=== PATIENT | female | born 1970 | race Caucasian/White ===

== ENCOUNTER 2022-03-30 13:04 | Outpatient (CLI) | payer OTHER, SELFPAY ==
--- NOTE | 2022-03-30 13:00 | CRLHL7_ITS ---
For Patients: As a result of the Century Cures Act, medical imaging exams and procedure reports are released immediately into your electronic medical record. You may view this report before your referring provider. If you have questions, please contact your health care provider. BILATERAL MAMMOGRAM WITH COMPUTER-AIDED DETECTION AND TOMOSYNTHESIS TECHNIQUE: CC and MLO views were obtained. These mammographic images have been obtained using full-field digital technique. These mammographic images were interpreted with the benefit of computer-aided detection. Breast Tomosynthesis was used in this interpretation. COMPARISON FILM: 02/27/2021, 10/04/2019, 04/12/2016. FINDINGS: The breasts are almost entirely fatty IMPRESSION: There is no radiographic evidence for malignancy. ASSESSMENT: BI-RADS Category 1: Negative RECOMMENDATION: Routine screening mammogram in 1 year. A lay language report of this examination will be provided to the patient. Td Rodriguez M.D. Diagnostic Radiologist [email or web address] TANIKA/Dictated by: Td Rodriguez MD @ 03/31/2022 12:55:00 PM (Electronically Signed)
== END 2022-03-30 13:05 | disposition home or self-care (01) ==
LOC: MAMMO 13:07
PROVIDERS: PCP Physician Assistant Medical; Visit Provider Obstetrics & Gynecology
DX: Z12.31 Encounter for screening mammogram for malignant neoplasm of breast (principal)
CPT/HCPCS: 77063; 77067

== ENCOUNTER 2022-05-05 10:20 | Outpatient (CLI) | payer OTHER, SELFPAY ==
[2022-05-05 12:18] LABS: Cholesterol* 216 mg/dL (90-199)
[2022-05-05 12:19] LABS: Glucose* 103 mg/dL (60-115); HDL Cholesterol* 60 mg/dL (>=50); LDL Cholesterol Calculated 134 mg/dL (<100); Triglycerides* 109 mg/dL (40-149)
== END 2022-05-05 10:21 | disposition home or self-care (01) ==
LOC: NFLDREF 10:23
PROVIDERS: PCP Physician Assistant Medical; Visit Provider Obstetrics & Gynecology
DX: Z13.1 Encounter for screening for diabetes mellitus (principal); Z13.6 Encounter for screening for cardiovascular disorders
CPT/HCPCS: 80061; 82947

== ENCOUNTER 2022-08-02 06:46 | Outpatient (CLI) | payer OTHER, SELFPAY | END 2022-08-02 06:47 | disposition home or self-care (01) | LOC: OP CLINIC 06:46 | PROVIDERS: PCP Physician Assistant Medical; Visit Provider Surgery | DX: Z12.11 Encounter for screening for malignant neoplasm of colon (principal) | CPT/HCPCS: 45378; 99153; J2250; J3010 ==

== ENCOUNTER 2022-12-08 07:22 | Outpatient (CLI) | payer OTHER, SELFPAY | END 2022-12-08 07:23 | disposition home or self-care (01) | LOC: NFLDREF 12-10 01:40 | PROVIDERS: PCP Physician Assistant Medical; Referring Provider Physician Assistant Medical; Visit Provider Physician Assistant Medical | DX: I10 Essential (primary) hypertension (principal); R53.83 Other fatigue; E78.5 Hyperlipidemia, unspecified; F41.1 Generalized anxiety disorder; E66.01 Morbid (severe) obesity due to excess calories | CPT/HCPCS: 80053; 82306; 82607; 82728; 84443 ==

== ENCOUNTER 2022-12-27 19:30 | Outpatient (CLI) | payer OTHER, SELFPAY ==
--- NOTE | 2023-01-11 08:06 | W.PM.SLEEP ---
Sleep Study Details Details Interpreting Provider: Calin Date of Sleep Study: 12/27/22 Sleep Study Details: STUDY TYPE:? Home ? BMI:? 43.2 ORDERING PROVIDER:? Calin INDICATION:? Concerns about sleep apnea ? SLEEP SUMMARY:? 420.5 minutes monitored RESPIRATORY SUMMARY:? AHI 105.6 with minimal positional variation Central index 3.9 Low oxygen 64 55% of study oxygen less than 90% Snoring 8.5% PERIODIC LIMB MOVEMENTS OF SLEEP:? Not recorded CARDIAC:? Ranged 66-117, mean 84.8 IMPRESSION:? Severe obstructive sleep apnea with a mildly elevated central apnea index of 3.9 and significant hypo oxygenation. RECOMMENDATION: Recommendation would be for an in-lab titration study. If this is not covered by insurance or patient is unwilling would recommend an auto titrate setting of 4-18 with close follow-up. Once effective therapy is established overnight oximetry study should be performed.
== END 2022-12-27 19:31 | disposition home or self-care (01) ==
LOC: SLEEP 19:31
PROVIDERS: PCP Physician Assistant Medical; Visit Provider Otolaryngology
DX: G47.33 Obstructive sleep apnea (adult) (pediatric) (principal)
CPT/HCPCS: 95806

== ENCOUNTER 2023-03-21 12:54 | Outpatient (CLI) | payer OTHER, SELFPAY ==
--- NOTE | 2023-03-21 13:00 | CRLHL7_ITS ---
For Patients: As a result of the Century Cures Act, medical imaging exams and procedure reports are released immediately into your electronic medical record. You may view this report before your referring provider. If you have questions, please contact your health care provider. INDICATION: Sinusitis. Deviated septum. TECHNIQUE: Noncontrast CT images acquired through the paranasal sinuses. COMPARISON: None. FINDINGS: No air-fluid levels to suggest acute sinusitis. Minimal mucosal thickening in the maxillary sinuses. The ethmoid infundibula are widely patent. The frontal sinuses and frontal recesses are clear. Minimal ethmoid sinus mucosal thickening. The sphenoid sinuses and sphenoethmoidal recesses are clear. There is 6 mm rightward nasal septal deviation with 3 mm rightward directed septal spur contacting the right middle nasal turbinate. No nasal cavity masses. Trace left mastoid fluid. IMPRESSION: 1. Minimal paranasal sinus mucosal disease. No air-fluid levels to suggest acute sinusitis. 2. Rightward nasal septal deviation with rightward directed septal spur contacting the right middle nasal turbinate. Please note that all CT scans at this facility use dose modulation, iterative reconstruction, and/or weight-based dosing when appropriate to reduce radiation dose to as low as reasonably achievable. Dictated by Darrell Silveira MD @ 03/21/2023 1:41:24 PM (Electronically Signed)
== END 2023-03-21 12:55 | disposition home or self-care (01) ==
LOC: CT 12:54
PROVIDERS: PCP Physician Assistant Medical; Visit Provider Otolaryngology
DX: J32.9 Chronic sinusitis, unspecified (principal); J34.2 Deviated nasal septum
CPT/HCPCS: 70486

== ENCOUNTER 2023-08-29 14:46 | Outpatient (CLI) | payer OTHER, SELFPAY | END 2023-08-29 14:47 | disposition home or self-care (01) | LOC: RAD 14:47 | PROVIDERS: PCP Physician Assistant Medical; Visit Provider Internal Medicine | DX: I44.7 Left bundle-branch block, unspecified (principal); I51.7 Cardiomegaly | CPT/HCPCS: 93306 ==

== ENCOUNTER 2023-09-28 14:48 | Outpatient (CLI) | payer OTHER, SELFPAY ==
--- NOTE | 2023-09-28 15:00 | CRLHL7_ITS ---
For Patients: As a result of the Century Cures Act, medical imaging exams and procedure reports are released immediately into your electronic medical record. You may view this report before your referring provider. If you have questions, please contact your health care provider. BILATERAL SCREENING MAMMOGRAM WITH COMPUTER-AIDED DETECTION AND TOMOSYNTHESIS TECHNIQUE: CC and MLO views were obtained. These mammographic images have been obtained using full-field digital technique. These mammographic images were interpreted with the benefit of computer-aided detection. Breast Tomosynthesis was used in this interpretation. COMPARISON FILM: 03/30/22, 02/27/21, 10/04/19. FINDINGS: The breasts are almost entirely fatty IMPRESSION: There is no radiographic evidence for malignancy. ASSESSMENT: BI-RADS Category 1: Negative RECOMMENDATION: Routine screening mammogram in 1 year. A lay language report of this examination will be provided to the patient. Td Rodriguez M.D. Diagnostic Radiologist [email or web address] TANIKA/Dictated by: Td Rodriguez MD @ 09/29/2023 9:01:00 AM (Electronically Signed)
== END 2023-09-28 14:49 | disposition home or self-care (01) ==
LOC: MAMMO 14:50
PROVIDERS: PCP Physician Assistant Medical; Visit Provider Physician Assistant Medical
DX: Z12.31 Encounter for screening mammogram for malignant neoplasm of breast (principal)
CPT/HCPCS: 77063; 77067

== ENCOUNTER 2023-10-21 10:20 | Day surgery (SDC) | payer OTHER, SELFPAY ==
[2023-10-21] VITALS (12 sets, daily range): BP systolic 119–140; BP diastolic 65–93; PULSE 62–96; RESP 13–20; TEMP 36.2–36.9; O2SAT 95–100; BMI 45.5
--- OUTSIDE RECORDS SUMMARY | 2023-10-21 10:23 | XMS_ITS | Clinical Summary ---
Author Name Unknown Organization [facility] Address [place], [place] [address] Care Team Providers Care Geosciences Faculty Member Name Role Phone Gabby Washington PA-C Primary Care Provider [phone] Allergies No known active allergies Medications Medication Sig Dispensed Refills Start Date End Date Status TRIPHASIL (28) ORAL TAB as directed ? 0 09/26/1998 Active metoprolol succinate (TOPROL XL) 25 mg Sustained-Release tabletIndications:PVC (premature ventricular contraction) Take 1 Tablet (25 mg) by mouth once daily. 90 Tablet 3 08/11/2023 Active Encounters Date Type Department Care Team Description 08/30/2023 Telephone [facility] [address] [place] [address] [address] [place] [address] Wing Guerrier MD Results 08/29/2023 3:00 PM LENDING ADVISOR Orders Only [facility] [address] [place] [address] 2 scans: (2-Ord) ECHO TTE COMPLETE WO CONTRAST ([id number]) 08/29/2023 Travel 08/15/2023 Telephone [facility]a [facility] [place] [address] Wing Guerrier MD Results 08/11/2023 Telephone [facility] [place] [address] Wing Guerrier MD Results 08/09/2023 9:00 AM LENDING ADVISOR Ancillary Procedure [facility] [address] [place] [address] [place] [address] 08/09/2023 8:45 AM LENDING ADVISOR Orders Only [facility] [address] [place] [address] [place] [address] Lab 08/09/2023 Travel 07/22/2023 1:30 PM CDT Office Visit [facility] [address] [place] [address] Wing Guerrier MD 07/22/2023 Telephone [facility] [address] [place] [address] Gabby Washington PA-C Imaging (Echo // Referral) 07/22/2023 Telephone [facility] [address] [place] [address] [place] [address] Wing Guerrier MD Health Maintenance Update from Last 3 Months Social History Tobacco Use Types Packs/Day Years Used Date Smoking Tobacco: Never Assessed Social Connections Answer Date Recorded Frequency of Communication with Friends and Fami ly Not on file 07/22/2023 Sex and Gender Information Value Date Recorded Sex Assigned at Not on file Gender Identity Not on file Sexual Orientation Not on file Last Filed Vital Signs Vital Sign Reading Time Taken Comments Blood Pressure 102/60 11/18/1999 12:00 AM LENDING ADVISOR Pulse - - Temperature 36.4 ??C (97.5 ??F) 11/18/1999 12:[address] Respiratory Rate - - Oxygen Saturation - - Inhaled Oxygen Concentration - - Weight 124.7 kg (275 lb) 08/09/2023 9:00 AM LENDING ADVISOR Height 170.2 cm (5' 7) 08/09/2023 9:00 AM LENDING ADVISOR Body Mass Index 43.07 08/09/2023 9:00 AM LENDING ADVISOR Plan of Treatment Health Maintenance Due Date Last Done Comments Tdap 1981 Depression screening for age 12+ 1982 HIV for age 15-65 1985 Hepatitis C screening for age 18-79 02/14/1988 Tetanus booster 1990 Colonoscopy through age 75 2015 Lipids for age 45-75 2015 Mammogram for age 45-75 2015 Zoster (shingles) series for age 50+ (1 of 2) 02/14/2020 COVID-19 vaccine series (3 - 2022-24 season) 2023 04/01/2021, 03/09/2021 Influenza for age 50-64 05/27/2023 Pap test for age 21-65 04/01/2024 , 04/01/2021, 04/26/2016, Additional history exists BMI (ht and wt on same day) for age 18+ 08/09/2024 08/09/2023 Pneumococcal series for age 6-64 Aged Out No longer eligible based on patient's age to complete this topic Procedures Procedure Name Priority Date/Time Associated Diagnosis Comments ECHO TTE COMPLETE WO CONTRAST Routine 08/29/2023 4:03 PM LENDING ADVISOR Cardiac abnormality EXTENDED HOLTER Routine 08/12/2023 8:02 AM LENDING ADVISOR LBBB (left bundle branch block) PVC (premature ventricular contraction) CT CARDIAC CORONARY ARTERIES DUAL READ Routine 08/09/2023 9:54 AM LENDING ADVISOR SANCHEZ (dyspnea on exertion) CREATININE,ISTAT Routine 08/09/2023 9:08 AM LENDING ADVISOR SANCHEZ (dyspnea on exertion) from Last 3 Months Results * ECHO TTE COMPLETE WO CONTRAST (08/29/2023 4:03 PM LENDING ADVISOR) AORTIC VALVE MEAN PG 5 mmHg PEAK TR VELOCITY 2.3 m/s LVEDD 4.8 cm EJECTION FRACTION 60 - 65% Anatomical Region Laterality Modality Ultrasound 08/29/2023 3:23 PM LENDING ADVISOR Narrative 08/29/2023 4:23 PM LENDING ADVISOR ECHOCARDIOGRAM BRITT Licea SHEREEN ? Accession#: ?? [id number] : ?1970 53 years Study Date: ?? 08/29/2023 3:23:58 PM Gender: F ?BP: ? 121/79 mmHg Height: 170.00 cm ?BSA: ?2.32 m? ? ? Weight: 125.00 kg ?Tech: ? MTS ? Referring MD: WING GUERRIER Site: ? [facility] Reading Location: MOBILE OP Patient Location: Outpatient. Procedure: 2D, Color Doppler and Spectral Doppler. Indication for study: Cardiac abnormality, LBBB Cardiac Rhythm: Regular.Study quality: Fair. Imaging limitations: This study was subject to imaging limitations due to a prominent lung artifact, body habitus and transgastric difficulties. Final Impressions: 1. Normal LV size, borderline wall thickness, normal global systolic function with an estimated EF of 60 - 65%. 2. Right ventricular cavity size is mildly enlarged, global systolic RV function is normal. 3. Mildly enlarged left atrium. 4. No significant valve disease detected. Comparison There are no prior studies on this patient for comparison purposes. Chamber Sizes and Function Normal left ventricular size, borderline wall thickness, normal global systolic function with an estimated EF of 60 - 65%. Left atrial size is mildly enlarged. Right ventricular cavity size is mildly enlarged, global systolic RV function is normal. RV wall thickness is normal. The right atrium is normal. Right atrial volume index is 16 ml/m? ? ?. Right atrial area is 16 cm? ? ?. The pulmonary artery is of normal size and origin. The sinus of Valsalva is normal sized. The ascending aorta is normal sized. Valves, RV Pressures and Diastolic Function The aortic valve is trileaflet, no stenosis and no regurgitation. The mitral valve is normal in structure, no mitral regurgitation. Indeterminate pattern of LV diastolic filling. The tricuspid valve is normal in structure. Tricuspid regurgitation is trace regurgitation. The tricuspid regurgitant velocity is 2.3 m/s, the estimated right ventricular systolic pressure is 21 mmHg plus right atrial pressure. The pulmonic valve is normal. Trace pulmonary regurgitation. Masses, Effusion, Shunts There is no pericardial effusion. The inferior vena cava is normal sized, respiratory size variation greater than 50%. Interatrial septum is not well visualized. MEASUREMENTS AND CALCULATIONS 2-D Measurements and LV Function: LVID (d) 4.8 cm LV FS% (2D) ?? 47 % LVID (s) 2.6 cm LVOT diameter 2.1 cm IVS (d) ??1.2 cm HR ?64 bpm LVPW (d) 1.1 cm LA Vol index ??32 ml/m2 Ao Sinus 3.4 cm RA Vol index ??16 ml/m2 Asc Ao ?? 3.5 cm RA area ? 16 cm? ? ? Trans Ao 2.9 cm RV Max 4C (d) 3.5 cm LA ? 5.2 cm Diastology: Mitral ?Tissue Doppler ?Pulmonary veins E Peak 0.7 m/s ??e', Septum ? 0.07 m/s Pulm s ?46.5 cm/s A Peak 0.5 m/s ??e', Lateral ?0.08 m/s Pulm d ?37.9 cm/s E/A ?1.4 ?E/e' Average ?? 9.31 ? Pulm s/d ratio ??1.23 DT ? 213 msec Aortic Valve: Vmax ? 1.5 m/s ??PEPE (V) ?? 2.73 cm? ? ? VTI ?0.36 m ?? PEPE (I) ?? 2.66 cm? ? ? LVOT V max 1.2 m/s ??Max PG ?9 mmHg LVOT VTI ?? 0.28 m ?? Mean PG ?? 5 mmHg SV ? 96 ml ?Dim Index 0.78 SV index ?? 42 ml/m? ? ? CO ?6.2 l/min ?CI ?2.7 l/min/m? ? ? Mitral Valve: MVA ?3.6 cm? ? ? MV P 1/2 62 msec Tricuspid Valve and estimated PA pressures: TR Vmax 2.3 m/s TAPSE 2.5 cm TR maxG 21 mmHg . This study was interpreted by an [facility] accredited facility. CC: [facility] ([facility]. ??Final ?? Procedure Note Modesto Coppola MD - 08/29/2023 ECHOCARDIOGRAM BRITT SIMS : 1970 53 years Study Date: 08/29/2023 3:23:58 PM Gender: F BP: 121/79 mmHg Height: 170.00 cm BSA: 2.32 m? ? ? Weight: 125.00 kg Tech: [facility] Referring MD: WING GUERRIER [facility]: [facility] Reading Location: MOBILE OP Patient Location: Outpatient. Procedure: 2D, Color Doppler and Spectral Doppler. Indication for study: Cardiac abnormality, LBBB Cardiac Rhythm: Regular.Study quality: Fair. Imaging limitations: This study was subject to imaging limitations due toa prominent lung artifact, body habitus and transgastric difficulties. Final Impressions: 1. Normal LV size, borderline wall thickness, normal global systolicfunction with an estimated EF of 60 - 65%. 2. Right ventricular cavity size is mildly enlarged, global systolic RVfunction is normal. 3. Mildly enlarged left atrium. 4. No significant valve disease detected. Comparison There are no prior studies on this patient for comparison purposes. Chamber Sizes and Function Normal left ventricular size, borderline wall thickness, normal globalsystolic function with an estimated EF of 60 - 65%. Left atrial size ismildly enlarged. Right ventricular cavity size is mildly enlarged, globalsystolic RV function is normal. RV wall thickness is normal. The rightatrium is normal. Right atrial volume index is 16 ml/m? ? ?. Right atrialarea is 16 cm? ? ?. The pulmonary artery is of normal size and origin. Thesinus of Valsalva is normal sized. The ascending aorta is normal sized. Valves, RV Pressures and Diastolic Function The aortic valve is trileaflet, no stenosis and no regurgitation. Themitral valve is normal in structure, no mitral regurgitation.Indeterminate pattern of LV diastolic filling. The tricuspid valve isnormal in structure. Tricuspid regurgitation is trace regurgitation. Thetricuspid regurgitant velocity is 2.3 m/s, the estimated right ventricularsystolic pressure is 21 mmHg plus right atrial pressure. The pulmonicvalve is normal. Trace pulmonary regurgitation. Masses, Effusion, Shunts There is no pericardial effusion. The inferior vena cava is normal sized,respiratory size variation greater than 50%. Interatrial septum is notwell visualized. MEASUREMENTS AND CALCULATIONS 2-D Measurements and LV Function: LVID (d) 4.8 cm LV FS% (2D) 47 % LVID (s) 2.6 cm LVOT diameter 2.1 cm IVS (d) 1.2 cm HR 64 bpm LVPW (d) 1.1 cm LA Vol index 32 ml/m2 Ao Sinus 3.4 cm RA Vol index 16 ml/m2 Asc Ao 3.5 cm RA area 16 cm? ? ? Trans Ao 2.9 cm RV Max 4C (d) 3.5 cm LA 5.2 cm Diastology: Mitral Tissue Doppler Pulmonary veins E Peak 0.7 m/s e', Septum 0.07 m/s Pulm s 46.5 cm/s A Peak 0.5 m/s e', Lateral 0.08 m/s Pulm d 37.9 cm/s E/A 1.4 E/e' Average 9.31 Pulm s/d ratio 1.23 DT 213 msec Aortic Valve: Vmax 1.5 m/s PEPE (V) 2.73 cm? ? ? VTI 0.36 m PEPE (I) 2.66 cm? ? ? LVOT V max 1.2 m/s Max PG 9 mmHg LVOT VTI 0.28 m Mean PG 5 mmHg SV 96 ml Dim Index 0.78 SV index 42 ml/m? ? ? CO 6.2 l/min CI 2.7 l/min/m? ? ? Mitral Valve: MVA 3.6 cm? ? ? MV P 1/2 62 msec Tricuspid Valve and estimated PA pressures: TR Vmax 2.3 m/s TAPSE 2.5 cm TR maxG 21 mmHg . This study was interpreted by an [facility] accredited facility. CC: [facility] ([facility]. Final Wing Guerrier MD ECHO ORD * ZIO PATCH XT - weekly to monthly symptoms. (08/12/2023 8:02 AM LENDING ADVISOR) Wing Guerrier MD CARDIAC SERVICE S ORD * CT CARDIAC CORONARY ARTERIES DUAL READ (08/09/2023 9:54 AM LENDING ADVISOR) Anatomical Region Laterality Modality HEART Computed Tomogra phy 08/09/2023 9:46 AM LENDING ADVISOR Impressions 08/15/2023 4:44 AM LENDING ADVISOR 1. ??No acute or suspicious extracardiac imaging abnormality with incidental hiatal hernia. ?? 2. ??Please see the dedicated cardiac imaging report. Please note that all CT scans at this facility use dose modulation, iterative reconstruction and/or weight-based dosing when appropriate to reduce radiation dose to as low as reasonably achievable. ?? Robin Bonilla M.D. Pediatric/Diagnostic Radiologist [email or web address] BAYRON/alla / ? Narrative 08/15/2023 4:44 AM LENDING ADVISOR ?[facility] ? Cardiac CT Report ??MRN: ? [id number] ?Name: ? BRITT SIMS ?: ?1969- ?Scan Date: ?Accession Number: ? [id number] ? Electronically signed by Vince Delacruz 16:46:10 VITALS HEIGHT: 67 in ?(170 cm) WEIGHT: 275 lbs ?(125 kgs) BSA: 2.32 m^2 BMI: 43 kg/m^2 BP: 126 / 83 mmHg BASELINE HR: 64 BPM HEART RHYTHM: PVCs FINAL IMPRESSION 1. Normal epicardial coronary arteries with no atherosclerosis, stenosis or anomaly to account for the patient's symptoms. ? A. Total coronary artery calcium score 0. RECOMMENDATIONS: Consider potential noncoronary causes of patient? s symptoms. STUDY QUALITY: Study quality is fair. Misalignment artifact(s) due to patient breathing noted. Low ntvzcatb-kb-jltur ratio on images noted. CAD-RADS: CAD-RADS Classification 0 (0% stenosis). CALCIUM SCORING: Total coronary artery calcium score 0. DOMINANCE: Right dominant coronary artery system. LM: The LM is normal. LAD: The LAD is normal. D1: The first diagonal is normal. RAMUS: The ramus is normal. LCX: The LCx is normal. OM1: The first obtuse marginal is normal. RCA: The RCA is normal. RIGHT PDA: The right PDA is normal. RIGHT PLB: The right posterolateral branch is normal. OTHER FINDINGS: Thoracic aorta: ??Aortic sinus maximum cusp-cusp: 35 x 35 x 34 mm. ??Ascending aorta maximum diameters: 34 x 31 mm. ??Descending thoracic aorta maximum diameters: 24 x 24 mm. Pericardium: No effusion. Left atrium: Normal contrast opacification. Atrial septum: No evidence of shunt. Pulmonary veins: Normal anatomy. CALCIUM SCORING TABLE . . ? Number of Lesions Pattern of Calcium Volume Total Score +-------+ + +--------+ + LM ? 0 LAD ? 0 LCx ? 0 RCA ? 0 Ramus ? '-------+ + +--------+ ' SCAN INFO TEST TYPE: ??Calcium score, Coronary CT Angiography SCANNER WORK FORCE ADVISOR: ??SIEMENS SCANNER MODEL: ??Pockethernet DOSE REDUCTION ALGORITHM: ??Helical with dose modulation PHASE UNITS: ??% START PHASE: ??67 % END PHASE: ??72 % EKG GATED: ??Yes PRE-CONTRAST: ??Yes POST-CONTRAST: ??Yes 3D RECONSTRUCTION: ??Yes GENERAL ?CONTRAST AGENT ?CONTRAST AGENT USED?: ??Yes ?TYPE: ??Omnipaque 350 ?DOSE: ??8.0 ml ?RATE: ??135 ml/s ?ROUTE: ??IV ?ARM: ??Left ?BOLUS TECHNIQUE: ??Biphasic ?SERUM CREATININE: ??0.50 mg/dL ?GFR: ??137.18 ml/min/1.73m^2 ?CREATININE DATE: ??2022- ?CT CONTRAST REACTION: ??None ?MEDICATION ADMINISTERED DURING SCAN ?TYPE: ??Nitroglycerin, sublingual, B-Blockers ?NITROGLYCERIN, TOTAL DOSE: ??0.8 mg ?B-FLORES TYPE: ??Oral, IV ?B-FLORES NAME, ORAL: ??Metoprolol tartrate ?B-FLORES NAME, IV: ??Metoprolol tartrate ?B-BLOCKERS, ORAL DOSE: ??50 mg ?B-BLOCKERS, IV DOSE: ??10 mg ?NUMBER OF DOSES: ??2 ?RADIATION DOSE ?DLP: ??408 ?KV: ??120 ?SETUP ?PATIENT TYPE: ??Outpatient ?REASON(S) FOR SCAN: ??Shortness of breath, Abnormal stress test ?REFERRING PHYSICIAN: ??WING GUERRIER ?TECHNOLOGIST: ??Tao Phelps Patient Account ?[id number] ICD10 Codes ?R06.09 Report generated by [employer], a product of [employer] For Patients: As a result of the 21st Century Cures Act, medical imaging exams and procedure reports are released immediately into your electronic medical record. ??You may view this report before your referring provider. ?? If you have questions, please contact your health care provider. OVER-READ ??OVER-READ ??OVER-READ OVER-READ: DETAILED RADIOLOGY EXTRACARDIAC OVER-READ OF CARDIAC CT 08/09/2023 TECHNIQUE: ??Please see cardiology report for technical information. ??135 cc Omnipaque-350 intravenous contrast. This exam is being performed in conjunction with the services provided by the [facility] ([facility]). CLINICAL HISTORY: ??Cardiac CTA over-read. ? FINDINGS: Lung Parenchyma: Curvilinear scarring left lower lobe. ?? Pleural Spaces: No pleural effusions. Pulmonary Arteries: No filling defects. Aorta: No signs for dissection. Mediastinum: No adenopathy. Miscellaneous: Hiatal hernia. Wing Guerrier MD CT * (ABNORMAL) CREATININE,ISTAT (08/09/2023 9:08 AM LENDING ADVISOR) [facility] CREATININE, POCT 0.50(L) 0.57 - 1.11 mg/dL 08/09/2023 9:10 AM LENDING ADVISOR [facility] Comment:Caution: Patients ta yolanda Hydroxyurea have falsely increased iStat Creatinine results. Verify creatinine results ordering a Creatinine (65183.2) eGFR >90 >90 mL/min/1.7 3m2 08/09/2023 9:10 AM LENDING ADVISOR [facility] Comment:As of 2021, eG FR is calculated by the CKD-EPI creatinine equation without race adjustment. eGFR can be influenced by muscle mass, exercise, and diet. The reported eGFR is an estimation only and is only applicable if the renal function is stable. Blood BLOOD SPECIMEN / Unknown 08/09/2023 9:08 AM LENDING ADVISOR 08/09/2023 9:10 AM LENDING ADVISOR Wing Guerrier MD CHEMISTRY [facility] [address] [place] [address], [place] from Last 3 Months Care Teams Geosciences Faculty Member Relationship Specialty Start Date End Date Gabby Washington, PATaC [address] [place] [id number] PCP - General Physician Broach Trouble Shooter 07/14/23
[2023-10-21] MEDS: LACTATED RINGERS 1000 ML 1,000 ML 100 ML IV (10:55)
[2023-10-21] MEDS: OXYMETAZOLINE (AFRIN) SOAK 1 EACH TOPICAL (11:05)
[2023-10-21] MEDS: SCOPOLAMINE 1 MG/3 DAY PATCH 1 PATCH TRANSDERMA (11:12)
[2023-10-21] MEDS: SODIUM CHLORIDE 0.9 % (FLUSH) 10 ML SYRINGE IVF (11:12)
[2023-10-21] MEDS: COCAINE HCL 4 % 4 ML SOLUTION NOSTRIL-B (12:25)
--- NOTE | 2023-10-21 12:25 | SUR.OPER ---
PATIENT QUESTIONS ANSWERED SATISFACTORILY PREOPERATIVELY BY Kel STALEY RN. PATIENT BROUGHT TO OR #0 PER CART. Patient positioned supine on OR #2 bed. Perioperative team wrapped arms bilaterally at patient side with drawsheet. ? Final approval of positioning by surgeon.
[2023-10-21] MEDS: BUPIVACAINE 0.5%/EPINEPHRINE 0.9 MG (30.9 ML) INJECTION (12:29)
[2023-10-21] MEDS: AYR SALINE NASAL GEL 1 APPLIC NOSTRIL-B (12:34)
[2023-10-21] MEDS: MUPIROCIN 1 GM PACKET 1 APPLIC TOPICAL (12:45)
--- NOTE | 2023-10-21 13:00 | W.ANESCHARGE ---
Anesthesia Charges Start Date/Time Anesthesia Start Date: 10/21/23 Anesthesia Start Time: 12:13 Stop Date/Time Anesthesia Stop Date: 10/21/23 Anesthesia Stop Time: 13:01
--- NOTE | 2023-10-21 13:04 | W.ANESCHARGE ---
Anesthesia Charges Start Date/Time Anesthesia Start Date: 10/21/23 Anesthesia Start Time: 12:13 Stop Date/Time Anesthesia Stop Date: 10/21/23 Anesthesia Stop Time: 13:01
--- NOTE | 2023-10-21 13:47 | P.ENTPROC_ITS ---
Procedure Note Date of procedure: 10/21/23 Procedure: Preoperative diagnosis deviated septum nasal obstruction nasal headache inferior turbinate hypertrophy bilateral Postoperative diagnosis same Procedure septoplasty, submucous partial resection inferior turbinates bilateral Under general endotracheal anesthesia patient was prepped draped usual fashion nose decongested injected. A right hemitransfixion incision was made left anterior and posterior tunnels were created. A vertical incision was made through the cartilage just anterior to the bone and a right posterior tunnel created. The posterior deflected portions of septal bone and cartilage that were compressing right middle turbinate were resected. A large piece was trimmed returned to intraseptal space. The hemitransfixion was closed with 2 4- 0 chromic sutures. A stab incision was made in the anterior of the right inferior turbinate a tunnel created with a Bryant dissector. A conservative anterior submucous resection was performed and then the Coblation was used to cauterize intramurally along the inferior 10% this was repeated on the left side in identical fashion. Silastic stents were secured 3-0 nylon and Merocel coated in Bactroban was placed in each side of the nose. The patient procedure well was taken recovery in satisfactory condition. Blood loss was less than 20 mL. Surgeon: Wade Loo MD
--- NOTE | 2023-10-21 13:53 | W.PM.ENTPN ---
ENT-PN: Yenifer Luis Date Seen: 10/21/23 Interval history: Postop check doing well. Patient states she has mild obstructive sleep apnea which we knew from her previous visits. She has a CPAP at home and will also sleep propped up. She definitely does not want to stay in the hospital. Overall she is doing well and had no trouble in recovery despite being sedated as long as her head was elevated so I emphasized that with her. Exam Const: Vital Signs, click to edit/add: Vital Signs - 24 hr 10/21/23 10:47 10/21/23 12:56 10/21/23 13:00 Temperature 98.4 F 97.8 F Pulse Rate 96 74 70 Respiratory Rate 20 13 14 Blood Pressure 140/83 H 138/93 H 137/84 Pulse Oximetry 98 95 95 Oxygen Delivery Me thod Room Air Room Air Room Air 10/21/23 13:05 10/21/23 13:10 10/21/23 13:15 Temperature 98.0 F Pulse Rate 69 70 66 Respiratory Rate 15 16 17 Blood Pressure 136/81 133/81 128/80 Pulse Oximetry 96 96 97 Oxygen Delivery Me thod Room Air Room Air Room Air 10/21/23 13:20 10/21/23 13:25 10/21/23 13:30 Temperature 98.0 F 97.1 F L Pulse Rate 65 64 65 Respiratory Rate 17 18 16 Blood Pressure 139/79 137/81 127/79 Pulse Oximetry 98 99 97 Oxygen Delivery Me thod Room Air Room Air Room Air
--- NOTE | 2023-10-21 13:58 | SUR.PHASEII ---
Pt to Phase II awake, alert, conversing. Patient tolerated water and coffee. Dr. Loo visited patient and in phase II.
--- NOTE | 2023-10-21 14:43 | SUR.PHASEII ---
Dr. Loo visited and assessed patient in phase II & gave home instructions. Pt tolerated toast. Patient voided prior to discharge. Patient and verbalized readiness to be discharged and verbalized understanding of all discharge instructions. Paper discharge instructions provided.
== END 2023-10-21 14:46 | disposition home or self-care (01) ==
PROVIDERS: PCP Physician Assistant Medical; Visit Provider Otolaryngology
PROC: (CPT 30520; principal; 2023-10-21 11:45)
DX: J34.2 Deviated nasal septum (principal); J34.3 Hypertrophy of nasal turbinates; R51.9 Headache, unspecified; G47.33 Obstructive sleep apnea (adult) (pediatric)
CPT/HCPCS: 30520; 30140; 00160; A9270; J0330; J1100; J2250; J2405; J2704; J3010; J7120

== ENCOUNTER 2024-10-29 09:06 | Outpatient (CLI) | payer OTHER, SELFPAY | END 2024-10-29 09:07 | disposition home or self-care (01) | PROVIDERS: PCP Physician Assistant Medical; Visit Provider Obstetrics & Gynecology | DX: E78.5 Hyperlipidemia, unspecified (principal); R73.03 Prediabetes; I10 Essential (primary) hypertension; E66.01 Morbid (severe) obesity due to excess calories | CPT/HCPCS: 80061; 82947 ==

== ENCOUNTER 2024-11-23 14:57 | Outpatient (CLI) | payer OTHER, SELFPAY | END 2024-11-23 14:58 | disposition home or self-care (01) | PROVIDERS: PCP Physician Assistant Medical; Visit Provider Obstetrics & Gynecology | DX: Z12.31 Encounter for screening mammogram for malignant neoplasm of breast (principal) | CPT/HCPCS: 77063; 77067 ==